=== PATIENT | male | born 1965 | race Caucasian/White ===

== ENCOUNTER → 2017-11-22 | Outpatient (CLI) | payer MEDICAID, OTHER ==
--- NOTE | 2017-11-22 10:11 | MR ---
EXAMINATION TYPE: MR cervical spine wo con DATE OF EXAM: 11/22/2017 COMPARISON: NONE HISTORY: Pain in Left shoulder,Radiculopathy TECHNIQUE: Multiplanar, multisequence images of the cervical spine were acquired. C2-C3: No evidence for degenerative disc disease. No disc bulge/herniation or protrusion. No Canal stenosis. Foramina are patent bilaterally. C3-C4: No evidence for degenerative disc disease. No disc bulge/herniation or protrusion. No Canal stenosis. Foramina are patent bilaterally. Mild uncovertebral joint. C4-C5: No evidence for degenerative disc disease. No disc bulge/herniation or protrusion. No Canal stenosis. Foramina are patent bilaterally. C5-C6: No evidence for degenerative disc disease. No disc bulge/herniation or protrusion. No Canal stenosis. Foramina are patent bilaterally. Mild facet arthropathy. C6-C7: No evidence for degenerative disc disease. No disc bulge/herniation or protrusion. No Canal stenosis. Foramina are patent bilaterally. C7-T1: No evidence for degenerative disc disease. No disc bulge/herniation or protrusion. No Canal stenosis. Foramina are patent bilaterally. Mild hypertrophic change of the facets. Cervical segments are intact. There is normal alignment. Cervical spinal cord is of normal signal. Craniovertebral junction relationships are within normal limits. Disc spaces are preserved at all l evels but there is mild disc desiccation. IMPRESSION: No disc herniation, canal stenosis or foraminal encroachment at any of the visualized levels. Mild mu ltilevel degenerative disc disease.
== END ==
LOC: RADMRIMAIN 07:31
PROVIDERS: ATTEND Orthopaedic Surgery
DX: M50.10 Cervical disc disorder with radiculopathy, unspecified cervical region (principal)
CPT/HCPCS: 72141

== ENCOUNTER → 2018-02-14 | Outpatient (CLI) | payer MEDICAID, OTHER ==
[2018-02-14 10:38] LABS: Anion Gap 8 mmol/L; Blood Urea Nitrogen 17 mg/dL (9-20); Calcium 9.8 mg/dL (8.4-10.2); Carbon Dioxide 26 mmol/L (22-30); Chloride 106 mmol/L (98-107); Glucose 100 mg/dL (74-99); Potassium 5.1 mmol/L (3.5-5.1); Sodium 140 mmol/L (137-145)
== END | disposition home or self-care (01) ==
LOC: LABWHC1 10:02
PROVIDERS: ATTEND Family Medicine
DX: I10 Essential (primary) hypertension (principal)
CPT/HCPCS: 36415; 80048

== ENCOUNTER → 2018-03-25 | Outpatient (CLI) | payer MEDICAID, OTHER ==
[2018-03-25 13:34] LABS: HCT 46.7 % (39.0-53.0); HGB 15.4 gm/dL (13.0-17.5); MCH 31.6 pg (25.0-35.0); MCV 95.8 fL (80.0-100.0); Mean Platelet Volume 7.2; Platelet Count 182 k/uL (150-450); RBC 4.88 m/uL (4.30-5.90); RDW 13.1 % (11.5-15.5); WBC 4.8 k/uL (3.8-10.6)
[2018-03-25 13:47] LABS: Anion Gap 11 mmol/L; Blood Urea Nitrogen 19 mg/dL (9-20); Calcium 9.9 mg/dL (8.4-10.2); Carbon Dioxide 24 mmol/L (22-30); Chloride 105 mmol/L (98-107); Glucose 119 mg/dL (74-99); Potassium 4.5 mmol/L (3.5-5.1); Sodium 140 mmol/L (137-145)
[2018-03-25 13:56] LABS: Appearance,Urine Clear (Clear); Bilirubin,Urine Negative (Negative); Blood,Urine Moderate (Negative); Color,Urine Yellow; Glucose,Urine (UA) Negative (Negative); Ketones,Urine Negative (Negative); Leukocyte Esterase,Urine Negative (Negative); Mucus,Urine Rare /hpf; Nitrite,Urine Negative (Negative); PH, Urine 5.5 (5.0-8.0); Protein,Urine Negative (Negative); RBC,Urine 5 /hpf (0-5); Urobilinogen,Urine <2.0 mg/dL (<2.0); WBC,Urine 1 /hpf (0-5)
[2018-03-25 14:03] LABS: T4, Free (Free Thyroxine) 0.73 ng/dL (0.78-2.19)
== END | disposition home or self-care (01) ==
LOC: LABWHC1 11:42
PROVIDERS: ATTEND Family Medicine
DX: I10 Essential (primary) hypertension (principal); E02 Subclinical iodine-deficiency hypothyroidism; R31.21 Asymptomatic microscopic hematuria
CPT/HCPCS: 36415; 80048; 81001; 84439; 84443; 85027; 88108

== ENCOUNTER → 2018-10-03 | Outpatient (CLI) | payer MEDICAID, OTHER ==
[2018-10-03 09:35] LABS: HCT 46.4 % (39.0-53.0); HGB 15.3 gm/dL (13.0-17.5); MCH 31.6 pg (25.0-35.0); MCV 95.9 fL (80.0-100.0); Mean Platelet Volume 7.4; Platelet Count 159 k/uL (150-450); RBC 4.84 m/uL (4.30-5.90)
[2018-10-03 10:26] LABS: Appearance,Urine Clear (Clear); Bilirubin,Urine Negative (Negative); Blood,Urine Moderate (Negative); Calcium Oxalate Crystals,Urine Rare /hpf; Color,Urine Yellow; Glucose,Urine (UA) Trace (Negative); Ketones,Urine Trace (Negative); Leukocyte Esterase,Urine Negative (Negative); Mucus,Urine Few /hpf; Nitrite,Urine Negative (Negative); PH, Urine 5.5 (5.0-8.0); Protein,Urine Trace (Negative); RBC,Urine 24 /hpf (0-5); WBC,Urine 1 /hpf (0-5)
[2018-10-03 17:04] LABS: Albumin 4.4 g/dL (3.80-4.90); Albumin/Globulin Ratio 2.32 (1.60-3.17); Anion Gap 9.8 mmol/L (4.00-12.00); Carbon Dioxide 24.2 mmol/L (21.6-31.8); Globulin 1.9 g/dL (1.6-3.3); LDL Cholesterol,Calculated 102.2 mg/dL (0.0-131.0); Total Bilirubin 0.2 mg/dL (0.2-1.2); Total Protein 6.3 g/dL (6.2-8.2); VLDL Calculation 20.8 mg/dL (5.00-40.00)
== END | disposition home or self-care (01) ==
LOC: LABWHC1 09:05
PROVIDERS: ATTEND Family Medicine
DX: Z00.00 Encounter for general adult medical examination without abnormal findings (principal); Z12.5 Encounter for screening for malignant neoplasm of prostate
CPT/HCPCS: 80061; 80053; 85027; 81001; 83036; 36415; G0103

== ENCOUNTER → 2018-10-06 | Outpatient (CLI) | payer MEDICAID, OTHER ==
[2018-10-06 17:02] LABS: Basophils % (A) 0 %; Eosinophils # (A) 0.1 k/uL (0-0.7); Eosinophils % (A) 2 %; HCT 42.6 % (39.0-53.0); HGB 13.8 gm/dL (13.0-17.5); Lymphocytes # (A) 1.1 k/uL (1.0-4.8); Lymphocytes % (A) 23 %; MCH 31.1 pg (25.0-35.0); MCHC 32.5 g/dL (31.0-37.0); MCV 95.7 fL (80.0-100.0); Mean Platelet Volume 7.2; Monocytes # (A) 0.3 k/uL (0-1.0); Monocytes % (A) 6 %; Neutrophils # (A) 3.1 k/uL (1.3-7.7); Neutrophils % (A) 67 %; Platelet Count 159 k/uL (150-450); RBC 4.45 m/uL (4.30-5.90); RDW 14.1 % (11.5-15.5); WBC 4.7 k/uL (3.8-10.6)
== END ==
LOC: LABWHC1 15:58
PROVIDERS: ATTEND Family Medicine
DX: R89.9 Unspecified abnormal finding in specimens from other organs, systems and tissues (principal); R82.90 Unspecified abnormal findings in urine
CPT/HCPCS: 36415; 85025

== ENCOUNTER → 2021-02-14 | Outpatient (CLI) | payer MEDICAID, OTHER ==
[2021-02-14 07:54] VITALS: BP 165/100; RESP 18; TEMP 98.7
--- NOTE | 2021-02-14 08:04 | P.PAINCN ---
History of Present Illness - Reason for Consult Consult date: 02/14/21 - History of Present Illness This 55 years old male with a chronic history of severe low back pain with radiation to the left lower extremity, assisted with numbness and tingling sensation, patient reported that the symptoms started more than a year ago and increasing intensity since July 2020, constant pain increases with any activity interfere with the quality of life, due to some weakness in his left lower extremity, she has done physical therapy without any improvement, and in October 2020 he had L4 5 Left hemilaminectomy, patient continued to have severe pain, pain is not improved with the NSAID (motrin ), he denies any fever or night sweats he denies any change in bowel movement or urination Past Medical History Past Medical History: Hypertension Additional Past Medical History / Comment(s): HAS BEEN HAVING EPISODES OF BLOOD IN STOOL FOR PAST FEW MONTHS History of Any Multi-Drug Resistant Organisms: None Reported Past Surgical History: Back Surgery, Joint Replacement, Orthopedic Surgery Additional Past Surgical History / Comment(s): Right partial knee replacement, bilateral knee arthroscopies, bilateral rotator cuff repairs, bilateral trigger finger surgery. Past Anesthesia/Blood Transfusion Reactions: No Reported Reaction Smoking Status: Current every day smoker - Past Family History Mother Family Medical History: No Reported History Father Family Medical History: CVA/TIA, Myocardial Infarction ([place]) Medications and Allergies Home Medications Medication Instructions Recorded Confirmed Type amLODIPine [Norvasc] 10 mg PO HS 02/12/21 02/12/21 History lisinopriL 40 mg PO QAM 02/12/21 02/12/21 History Allergies Allergy/AdvReac Type Severity Reaction Status Date / Time No Known Allergies Allergy Verified 02/12/21 11:49 Physical Exam Vitals: Vital Signs Temp Resp BP Pulse Ox 02/14/21 07:47 98.7 F 18 165/100 99 Physical Examinations : -Constitutiona : Cooperative , not in acute distress . -HEENT : nech : supple , no Lymphadenopathy , normal thyroid size . : eyes : no ptosis , no icterus, no photophobia . - neurologic : Cranial nerve II to XII intact , no focal neurological deffecit . -psychatric : alert , oriented X 3 , appropriate affect , intact judgment and insight . -Lymphatic : no Lymphadenopathy . - musculoskeltal : Lumber spine moter stegnth lower extremities ,thigh and legs 5/5 Right side , 4/5 Left side deep tendon reflexes : normal Knee Jerk , normal ankle Jerk lumber facet Loading Test =positive Right , positive Left Range of motion of the lumbar spine Flexion 30 degrees, extension 10 degrees strait leg raising test = positive at 30 degree on the left side ,and positive at 60 on the right side Fabere test= positive Right , and positive LT . Results Comments: MRI of the lumbar spine= L4 5 left hemilaminectomy with persistent disc bulge and posterior, degenerative disc disease and disc bulging at L5-S1 Lumbar facet arthropathy at L5-S1 Assessment and Plan Plan: Assessment and plan=1-lumbar radiculopathy. 2-lumbar bulging disc disease. 3-lumbar spondylosis with lumbar facet arthropathy. 4-history of lumbar laminectomy at L4 5 ( left hemilaminectomy ). he will be good candidate to have caudal epidural steroid injection with lysis of epidural adhesions under fluoroscopy guidance, if He had a good result ,then we'll repeat the procedure , if he doesn't benefit then we will do left-sided transforaminal epidural at L4 5 Time with Patient: Greater than 30 PQRS Measure Charge Sheet Measure #130: Documentation of Current Meds in Medical Chart: Patient's medic ations documented in chart Measure #226: Tobacco Use: Screen & Cessation Intervention: Pt screened for tobacco use AND intervention given Measure #111: Pneumonia Vaccination: Pneumococcal vaccine NOT administered or previously given Measure #47: Advance Care Plan: Advance care planning discussed & documented, pt chose/unable to give Measure #412: Opioid Treatment Agreement: No documentation of signed opioid treatment agreement Measure #408: Opioid Therapy Follow-up Evaluation: Patient had NO f/u eval minimum every 3 months during opioid therapy Measure #317: Preventitive Care & Scrn High Bld Press & F/U: Pre-hypertensive or hypertensive BP documented, pt will f/u with PCP Measure #128: Body Mass Index (BMI) Screening & Follow-up: BMI documented within normal parameters Measure #131: Pain Assessment & Follow-up: Pain positive & plan documented, Follow-up scheduled Measure #431: Unhealthy Alcohol Use Preventative Care & Scrn: Patient not identified as an unhealthy alcohol user PQRS Narrative: Smoking Status Current every day smoker Blood Pressure 165/100 Pain Intensity [Lower Back] 7 Scale Used Numeric (1 - 10) Hx Alcohol Use (MH) Yes: 1-2 daily Home Medications: Ambulatory Orders amLODIPine [Norvasc] 10 mg PO HS 02/12/21 lisinopriL 40 mg PO QAM 02/12/21
== END ==
LOC: PNWHC3 07:27
PROVIDERS: ATTEND Specialist
DX: M47.26 Other spondylosis with radiculopathy, lumbar region (principal); M51.16 Intervertebral disc disorders with radiculopathy, lumbar region; F17.200 Nicotine dependence, unspecified, uncomplicated; I10 Essential (primary) hypertension; Z79.899 Other long term (current) drug therapy; Z98.890 Other specified postprocedural states
CPT/HCPCS: 99211

== ENCOUNTER 2021-03-20 08:56 | Day surgery (SDC) | payer OTHER ==
[2021-03-16 14:55] VITALS: BMI 23.6
[2021-03-20 09:33] VITALS: RESP 18; TEMP 98
[2021-03-20] MEDS ORDERED: LACTATED RINGERS 1,000 ML IV ONE (09:39)
[2021-03-20] MEDS ORDERED: fentaNYL (PF) 50 MCG/ML 2 ML AMP ONE (09:50)
[2021-03-20] MEDS ORDERED: MIDAZOLAM 2 MG/2 ML VIAL ONE (09:50)
[2021-03-20] MEDS ORDERED: IOPAMIDOL M200 10 ML VIAL ONE (09:50)
[2021-03-20] MEDS ORDERED: methylPREDNISolone ACETATE 40 MG/ML 1 ML VIAL ONE (09:50)
--- NOTE | 2021-03-20 10:04 | P.PCN ---
Date of Procedure: 03/20/21 Description of Procedure: PREOPERATIVE DIAGNOSIS: Lumbar post laminectomy syndrome, and lumbar r adiculopathy. POSTOPERATIVE DIAGNOSIS: Lumbar post laminectomy syndrome, and lumbar radiculopathy. PROCEDURE: 1. Caudal epidural steroid injection under fluoroscopic guidance # 1 out of 3. 2. Caudal epidurogram. SURGEON: Tish Bush ANESTHESIA: Local with 1% lidocaine; IV sedation : Versed and fentanyl EBL: None. Specimens removed: None Complications: None Fluoroscopic image: saved to electronic medical records PROCEDURE INDICATION: Patient had a history of lumbar postlaminectomy syndrome, failed with conservative therapy. pain radiating distally returns for caudal epidural steroid injection. PROCEDURE DESCRIPTION: The patient was seen and identified in the preoperative area. Risks, benefits, complications, and alternatives were discussed with the patient. The patient agreed to proceed with the procedure and signed the consent. IV was started, and vital signs were stable. Patient was taken to the OR and time out was completed. The patient was placed in the prone position on procedure table and a pillow was placed under the abdomen to reduce lumbar lordosis. The lumbosacral area was prepped and draped in the usual sterile fashion. Critical pause was taken. Vital signs were closely monitored during the procedure. Using lateral fluoroscopy the anterior-posterior plates of the sacrum were identified and the skin and deeper tissues corresponding into sacrococcygeal ligament were anesthetized using approximately 3 mL of 1% lidocaine. Then under fluoroscopy, a 3-1/2-inch 20-gauge Tuohy epidural needle was guided through the sacrococcygeal ligament, and into the epidural space. After negative aspiration, a 2 mL of Isovue contrast dye was injected with epidurogram. Again after negative aspiration for CSF, blood, and with no paresthesias, Depo-Medrol 80mg, with 10ml of preservative free normal saline(total of 11ml) solution was injected with washout of epidurogram. Needle was withdrawn intact. Skin was cleansed, and bandage was applied. DISPOSITION / PLANS: The patient was placed in a supine position and transferred to the recovery area in a stable condition for observation and was discharged from the recovery room after meeting discharge criteria. Home discharge instructions given to the patient by the staff. The patient was reexamined prior to discharge. The patient will schedule a follow up in the clinic in 4 weeks.
[2021-03-20] MEDS ORDERED: IV FLUID CONTINUATION 1,000 ML IV ONE (10:06)
[2021-03-20] MEDS ORDERED: LACTATED RINGERS 1,000 ML IV SCH (10:15)
--- NOTE | 2021-03-20 10:23 | FL ---
Fluoroscopy INDICATION: Pain FINDINGS: Fluoroscopy time: Not recorded Images obtained: 2. IMPRESSIONS: 1. Documentation of fluoroscopy.
[2021-03-20 10:31] VITALS: BP 121/79; PULSE 68
== END 2021-03-20 10:35 | disposition home or self-care (01) ==
LOC: ORPAIN 08:56
DX: M54.16 Radiculopathy, lumbar region (principal); M96.1 Postlaminectomy syndrome, not elsewhere classified
CPT/HCPCS: 62323; J2250; J1030; J3010; Q9966; 99152

== ENCOUNTER → 2021-04-09 | Outpatient (CLI) | payer OTHER ==
[2021-04-09 07:59] VITALS: BP 157/95; PULSE 125; RESP 18; TEMP 98.7
--- NOTE | 2021-04-09 08:35 | P.PAINPG ---
Subjective Progress Note Date: 04/09/21 Principal diagnosis: Lumbar back pain and pain radiating to left lower extremity Mr. Jaquez is a 55 year old pleasant male patient came to [facility] pain management clinic for postprocedure evaluation. Patient had left side L4- L5 hemilaminectomy. Patient had caudal epidural steroid injection on 03/20/2021 . Which helped only 30-40% of his pain relief for first few days after that only 10% relief. Patient is scheduled to follow with his neurosurgeon Dr. Valero on 04/10/2021. Patient described pain as aching, sharp, throbbing, burning, tingling type of pain. Patient describes his pain sometimes radiating to his bilateral lower extremity foot area causing numbness and tingling. Most of the time his pain is on the left side radiating to the foot causing numbness and tingling sensation. Patient rated pain 7 out of 10 in severity. Which may very her pain level from 4-7 out of 10 in severity. Pain increases with activities, and standing, walking, sitting, bending forward, and lifting. Pain decreases with marijuana and intervention procedures, and inversion table. Overall patient activities decreased secondary to pain. Pain medications helping to some extent. Because of the pain patient is feeling lack of sleep and interest and energy. Denied any bowel or bladder problems. Patient denies any adverse effects to medications. Not using any walking aids for walking. Complaining depression secondary to pain but denied any suicidal/homicidal tendency at this time. Sleep pattern -altered some nights secondary to pain. There are no signs of narcotic diversion/misuse/overuse and no new-onset weakness, bowel/bladder incontinence, saddle anesthesia, or no red flag symptoms. Objective - Vital Signs Vital signs: Vital Signs Temp 98.7 F 04/09/21 07:55 Pulse 125 H 04/09/21 07:55 Resp 18 04/09/21 07:55 BP 157/95 04/09/21 07:55 Pulse Ox 98 04/09/21 07:55 - Exam General: Well-developed, well-nourished, no acute distress HEENT: Normocephalic, and atraumatic Neck: Supple, no neck swelling Psychiatric: Appropriate mood, and affect [employer]ING GE[employer] MECH[employer]IC: No focal neurological deficits Musculoskeletal: Upper extremity: Normal strength, and range of motion. Sensation grossly intact Lower extremity: Normal strength, and decreased range of motion secondary to pain. Lumbar spine: Paravertebral tenderness: positive , healed lower lumbar scar. Lumbar facet load test : positive SLR test positive on left side Sacroiliac joint tenderness: Negative - Constitutional Constitutional Comment(s): 12 point review of symptoms negative except as mentioned in history of present illness. Assessment and Plan Assessment: Lumbar postlaminectomy syndrome Lumbar spondylosis without myelopathy Lumbar radiculopathy History of marijuana use Plan: #1 Opioid, and psychological risk tools, and scores were reviewed. Diagnoses, prognosis, and multiple treatment options including but not limited to physical therapy, interventional therapy, adjunct medication therapy, narcotic medication, and surgical options were discussed with the patient. And all questions were answered to the patient's satisfaction. #2 treatment plan agreement : Patient was thoroughly discussed regarding the treatment options, alternatives, and importance of exercises as tolerated. Patient clearly understood. #3 Patient was counseled on importance of regular exercise. Including josé chi, aerobic exercises as tolerated. Which helps for chronic pain, and overall well- being. Patient also counseled regarding importance of weight control rolling chronic pain, and overall other health issues. By altering diet habits, minimizing sugar intake, and processed foods helps in minimizing Inflammation. Also discussed with the patient regarding intermittent fasting. Patient counseled regarding smoking associated with chronic pain, worsening inflammation, and smoking effects on liver, and medication metabolism. And encouraged to stop smoking. #4 investigations: MAPS- reviewed , urine drug test- not done #5 diagnostic tests: None #6 consultation : Neurosurgeon Dr. Valero # 7 interventional procedures: Left side L4-L5 transforaminal epidural steroid injection . Procedure, complications, alternatives discussed with the patient. #8 medications #1 magnesium oxide 400 mg by mouth daily Medication side effects, complications, long-term consequences discussed with the patient. Patient recommended to contact the pain clinic if noticed any is sues with given medications. #9 morphine milligrams equivalents dose ( MME) per day: 0 from the pain clinic. # 10 TENS unit's, and percussion massage device #11 disposition: scheduled to follow up with pain clinic in 4 weeks duration. Time with Patient: Less than 30 PQRS Measure Charge Sheet Measure #226: Tobacco Use: Screen & Cessation Intervention: Pt screened for tobacco use AND intervention given Measure #111: Pneumonia Vaccination: Pneumococcal vaccine NOT administered or previously given Measure #47: Advance Care Plan: Advance care planning discussed & documented, pt chose/unable to give Measure #412: Opioid Treatment Agreement: No documentation of signed opioid treatment agreement Measure #408: Opioid Therapy Follow-up Evaluation: Patient had NO f/u eval minimum every 3 months during opioid therapy Measure #317: Preventitive Care & Scrn High Bld Press & F/U: Pre-hypertensive or hypertensive BP documented, pt will f/u with PCP Measure #128: Body Mass Index (BMI) Screening & Follow-up: BMI documented within normal parameters Measure #131: Pain Assessment & Follow-up: Pain positive & plan documented Measure #431: Unhealthy Alcohol Use Preventative Care & Scrn: Patient not identified as an unhealthy alcohol user Mode of Arrival: Ambulatory - Pain Location Lower Back Non-Pharmacological Interventions: Home Exercise, Inactivity, Stretching Pharmacological Interventions: Epidural, PRN Medication PQRS Narrative: Smoking Status Current every day smoker Blood Pressure 157/95 Pain Intensity [Lower Back] 7 Scale Used Numeric (1 - 10) Hx Alcohol Use (MH) Yes: 1-2 daily Home Medications: Ambulatory Orders amLODIPine [Norvasc] 10 mg PO HS 02/12/21 lisinopriL 40 mg PO QAM 02/12/21 Controlled Substance Measures - Controlled Substance Measures Is patient prescribed a controlled substance at discharge?: No
== END ==
LOC: PNWHC3 07:49
DX: M47.26 Other spondylosis with radiculopathy, lumbar region (principal); M96.1 Postlaminectomy syndrome, not elsewhere classified; Z86.59 Personal history of other mental and behavioral disorders; F17.200 Nicotine dependence, unspecified, uncomplicated
CPT/HCPCS: 99211

== ENCOUNTER 2021-05-17 06:13 | Day surgery (SDC) | payer OTHER ==
[2021-05-15 14:33] VITALS: BMI 23.2
[2021-05-17 07:01] VITALS: RESP 16; TEMP 97.6
[2021-05-17] MEDS ORDERED: LACTATED RINGERS 1,000 ML IV ONE (07:02)
[2021-05-17] MEDS ORDERED: LIDOCAINE 1% (10MG/ML) FOR IV START INTRADERMA ONE (07:02)
[2021-05-17] MEDS ORDERED: MIDAZOLAM 2 MG/2 ML VIAL ONE (07:17)
[2021-05-17] MEDS ORDERED: methylPREDNISolone ACETATE 40 MG/ML 1 ML VIAL ONE (07:17)
[2021-05-17] MEDS ORDERED: .fentaNYL (PF) 50 MCG/ML AMP ONE (07:17)
[2021-05-17] MEDS ORDERED: IOPAMIDOL M200 10 ML VIAL ONE (07:17)
--- NOTE | 2021-05-17 07:29 | P.PCN ---
Date of Procedure: 05/17/21 Description of Procedure: PROCEDURE: 1) left sided L4-L5 Transforaminal epidural steroid injection under fluoroscopic guidance, 2) Epidurogram SURGEON: Tish Melissa SMOKED MEAT PREPARER: None ANESTHESIA: Local , and IV sedation: Versed 2 mg, and fentanyl 100 g EBL: None. Specimen removed: None Fluoroscopic image: Saved to electronic medical records PROCEDURE INDICATION: The patient with continued lumbar pain with radiculopathy, and intervertebral disc disease without myelopathy that has failed to respond to adequate conservative management. Came here for repeat procedure. PROCEDURE DESCRIPTION: The patient was seen and identified in the preoperative area. Risks, benefits, complications, and alternatives were discussed with the patient. The patient agreed to proceed with the procedure and signed the consent. IV was started, and vital signs were stable. Patient was taken to the OR and time out was completed. The patient was placed in the prone position on procedure table and a pillow was placed under the abdomen to reduce lumbar lordosis. The lumbosacral area was prepped with Chlora Prep 1 and draped in the usual sterile fashion. Critical pause was taken. Vital signs were closely monitored during the procedure. Using 20 degree ipsilateral oblique fluoroscopy, the chin of the Nael dog of L4 was identified, and the skin and deeper tissues just below was localized with 1% lidocaine. 22-guage 5-inch spinal needles were used for the procedure. The needle was guided by fluoroscopy just underneath the chin of the Nael dog of L4 . Under AP fluoroscopy, the needle was advanced to the 6 o'clock position of the L4 pedicle. After negative aspiration of CSF and blood and with no paresthesias, 1 mL of Isovue-200 contrast dye was injected with good anterior epidural spread and outlining of the L4 nerve root. After negative aspiration 3 mL of block solution injected . Block solution contained 80 mg of Depo-Medrol, 1 mL of 1% lidocaine preservative-free with 1 mL of normal saline preservative- free. Needle was removed intact, skin was cleansed, and bandage was applied. COMPLICATIONS: None. DISPOSITION : The patient was placed in a supine position and transferred to the recovery area in a stable condition for observation and was discharged from the recovery room after meeting discharge criteria. Home discharge instructions given to the patient by the staff. The patient was reexamined prior to discharge. The patient will schedule follow-up in the clinic in 4 weeks' duration
[2021-05-17] MEDS ORDERED: LACTATED RINGERS 1,000 ML IV SCH (07:30)
[2021-05-17] MEDS ORDERED: IV FLUID CONTINUATION 1,000 ML IV ONE (07:31)
--- NOTE | 2021-05-17 07:42 | FL ---
EXAMINATION TYPE: FL guided pain mgmt statistic DATE OF EXAM: 05/17/2021 CLINICAL HISTORY: Low back pain. TECHNIQUE: Fluoroscopy. COMPARISON: None. FINDINGS: Fluoroscopic guidance was provided during pain relief procedure performed by Dr. Mcclain . A total of 3 seconds of fluoroscopic time was utilized during the procedure and 2 spot images are a cquired. Images acquired shows needle localization at L4 level with contrast injection. IMPRESSION: As Above.
[2021-05-17 07:49] VITALS: BP 100/63; PULSE 67
== END 2021-05-17 08:06 | disposition home or self-care (01) ==
LOC: ORPAIN 06:13
DX: M54.16 Radiculopathy, lumbar region (principal); I10 Essential (primary) hypertension; M19.90 Unspecified osteoarthritis, unspecified site; Z79.899 Other long term (current) drug therapy
CPT/HCPCS: 64483; J2250; J1030; J3010; Q9966